=== PATIENT | female | born 1975 | race Caucasian/White ===

== ENCOUNTER 2016-11-25 15:27 | Emergency (ER) | payer MEDICAID ==
[~2016-11-25] VITALS: Wt 70.0 kg
[~2016-11-25 15:27] MED LIST: ACET1TAB40 PO; ALBU8.5H3 INH; BECL8.7A INH; CEPH-443 PO; IBUP-1542 PO; IBUP400T22 PO; PRED20TA PO; TYL500 PO; ZOF8 PO
[2016-11-25] MEDS ORDERED: ACETAMINOPHEN 500 MG TAB PO STA (18:06)
[2016-11-25] MEDS ORDERED: LEVALBUTEROL (NEB) 1.25 MG/0.5 ML AMP INH STA (18:06)
[2016-11-25] MEDS ORDERED: predniSONE 20 MG TAB PO STA (18:06)
--- NOTE | 2016-11-25 18:42 | ERD ---
ER Documentation Chief Complaint Date/Time DATE: 11/25/16 TIME: 18:42 Chief Complaint COUGH AND CONGESTION FOR THE PAST 3 DAYS. FEVER. MILD DISTRESS. HPI This a 41-year-old female who presents the emergency department today complaining of cough, runny nose, body aches and fevers for the past 3 days. Patient denies any nausea or vomiting. States she last took Motrin at 10 AM. States he has a history of asthma. ROS All systems reviewed and are negative except as per history of present illness. Medications Home Meds Active Scripts Prednisone* (Prednisone*) 20 Mg Tab, 40 MG PO DAILY for 4 Days, TAB Prov:CHAKA SHIN PA-C 01/04/16 Albuterol Sulfate* (Proair HFA*) 8.5 Gm Hfa.aer.ad, 2 PUFF INH Q4, #1 INHALER Prov:CHAKA SHIN PA-C 01/04/16 Beclomethasone Dip* (Qvar 40*) 7.3 Gm Inha, 1 PUFF INH BID, #1 INHALER Prov:CHAKA SHIN PA-C 01/04/16 Ondansetron Hcl* (Zofran* ODT) 8 mg -ODT Tab.disper, 8 MG PO Q6 Y for NAUSEA AND /OR VOMITING, #8 TAB Prov:CORY WYNN MD 06/27/15 Acetaminophen-Codeine* (Acetaminophen-Cod #3*) 300-30 Mg Tab, 1 TAB PO Q4H Y for PAIN, #14 TAB Prov:CORY WYNN MD 06/27/15 Ibuprofen* (Motrin*) 600 Mg Tab, 600 MG PO Q6, #20 TAB Prov:CORY WYNN MD 06/27/15 Cephalexin* (Keflex*) 500 Mg Capsule, 500 MG PO QID for 5 Days, CAP Prov:CORY WYNN MD 06/27/15 Reported Medications Acetaminophen* (Tylenol*) 500 Mg Tab, 500 MG PO DAILY Y for PAIN, TAB 07/17/14 Ibuprofen* (Ibuprofen*) 400 Mg Tablet, 400 MG PO DAILY Y for PAIN, TAB 07/17/14 Allergies Allergies: Coded Allergies: No Known Allergies (Verified Allergy, Mild, 07/17/14) PMhx/Soc History of Surgery: No Anesthesia Reaction: No Hx Neurological Disorder: No Hx Respiratory Disorders: Yes (ASTHMA) Hx Cardiac Disorders: No Hx Psychiatric Problems: No Hx Miscellaneous Medical Probl: No Hx Alcohol Use: No Hx Substance Use: No Hx Tobacco Use: No Physical Exam Vitals Vital Signs Date Time Temp Pulse Resp B/P Pulse Ox O2 Delivery O2 Flow Rate FiO2 11/25/16 18:31 87 20 96 21 11/25/16 16:57 141 26 99 Room Air 11/25/16 15:36 100.6 115 21 140/79 97 Physical Exam Const: Mild distress Head: Atraumatic Eyes: Normal Conjunctiva ENT: Ears TMs normal. Nose no drainage. Throat no erythema no exudate Neck: Full range of motion..~ No meningismus. Resp: Diffuse wheezing bilaterally in all lung webber. Cardio: Regular rate and rhythm, no murmurs Abd: Soft, non tender, non distended. Normal bowel sounds Skin: No petechiae or rashes Back: No midline or flank tenderness Ext: No cyanosis, or edema Neur: Awake and alert Psych: Normal Mood and Affect Results 24 hrs Laboratory Tests Test 11/25/16 19:54 Bedside Urine Blood Trace-intact Bedside Urine Glucose (UA) Negative Bedside Urine Ketones (LAB) 1+ Bedside Urine Leukocyte Esterase (L Negative Bedside Urine Nitrite (LAB) Negative Bedside Urine Protein (LAB) Negative Bedside Urine pH (LAB) 6.5 Current Medications Medications (Trade) Dose Ordered Sig/Ganesh Route PRN Reason Start Time Stop Time Status Last Admin Dose Admin Levalbuterol (Xopenex Neb) 2.5 mg ONCE STAT INH 11/25/16 18:06 11/25/16 18:08 DC 11/25/16 18:30 Prednisone (Prednisone) 60 mg ONCE STAT PO 11/25/16 18:06 11/25/16 18:08 DC 11/25/16 18:46 Acetaminophen (Tylenol Tab) 500 mg ONCE STAT PO 11/25/16 18:06 11/25/16 18:08 DC 11/25/16 18:45 DIAGNOSTIC IMAGING REPORT Patient: FREIDA PERRIN : 1975 Age: 41 Sex: F MR #: [id number] DOS: 11/25/16 180 Ordering MD: CLIFF RAMACHANDRAN PA-C Location: [facility] Room/Bed: PROCEDURE: XR Chest. CLINICAL INDICATION: Asthma exacerbation. TECHNIQUE: Single frontal chest x-ray. COMPARISON: Chest radiograph 01/04/2016. FINDINGS: The cardiomediastinal silhouette is unremarkable. No pneumothorax, pleural effusion or consolidation is seen. No acute osseous abnormality is noted. IMPRESSION: 1. No acute cardiopulmonary abnormality. RPTAT: HH .Hunter Kaplan MD, MD Date Time Electronically viewed and signed by .Hunter Kaplan MD, MD on 11/25/2016 19: 19 .N/ CC: CLIFF RAMACHANDRAN PA-C Procedures/MDM This a 41-year-old female who presents to the emergency department today with influenza-like symptoms. Patient was febrile at 100.6 and tachycardic. Her respirations are 21 and oxygen saturation 97%. Patient had significant amount of wheezing on physical exam. She does have a history of asthma and was therefore given a 1 hour continuous breathing treatment and I also obtained a chest x-ray.. Patient was also complaining of some low back pain and therefore did obtain a UA. Chest x-ray shows no acute cardiopulmonary abnormality. Suspicion for pneumonia , PE, abscess, pleural effusion. UA is negative for infection. Patient has had no trauma I do not feel that she requires imaging at this time. She was given Tylenol here in the emergency department in addition to her breathing treatment. Patient will be given a prescription for Tamiflu, Robitussin, short course of prednisone, Tylenol, Motrin and a refill on her pro- air inhaler. At this time the patient is stable for discharge and outpatient management. Patient should follow up with their PCP in the next 1-2 days. They may return to the emergency department sooner for any persistent or worsening of symptoms. Patient understood and agreed with the plan. CLIFF RAMACHANDRAN PA-C Nov 25, 2016 18:42
--- NOTE | 2016-11-25 19:19 | RADRPT ---
PROCEDURE: XR Chest. CLINICAL INDICATION: Asthma exacerbation. TECHNIQUE: Single frontal chest x-ray. COMPARISON: Chest radiograph 01/04/2016. FINDINGS: The cardiomediastinal silhouette is unremarkable. No pneumothorax, pleural effusion or consolidation is seen. No acute osseous abnormality is noted. IMPRESSION: 1. No acute cardiopulmonary abnormality. RPTAT: HH .Hunter Kaplan MD, Date Time Electronically viewed and signed by .Hunter Kaplan MD, on 11/25/2016 19:19 .N/
[2016-11-25 19:50] LABS: URINE BLOOD (Dip) POC Trace-intact (NEGATIVE)
[2016-11-25] MEDS ORDERED: IBUP-1542 PO (19:58)
[2016-11-25] MEDS ORDERED: ACET500C5 PO (19:58)
[2016-11-25] MEDS ORDERED: ALBU8.5H3 INH (19:58)
[2016-11-25] MEDS ORDERED: OSLT75C PO (19:58)
[2016-11-25] MEDS ORDERED: PRED20TA PO (19:58)
[2016-11-25] MEDS ORDERED: UDROBDM PO (19:59)
[2016-11-25 20:15] VITALS: BP 137/87; PULSE 133; RESP 20; TEMP 98.4
== END 2016-11-25 20:17 | disposition home or self-care (01) ==
LOC: FTE 15:27
DX: R05 Cough (principal); R09.89 Other specified symptoms and signs involving the circulatory and respiratory systems; R50.9 Fever, unspecified; R52 Pain, unspecified; J45.901 Unspecified asthma with (acute) exacerbation
CPT/HCPCS: 71010; 81003; 94644; J7512; Z7502; Z7610

== ENCOUNTER 2017-07-13 19:16 | Emergency (ER) | payer MEDICAID ==
[~2017-07-13] VITALS: Ht 160 cm; Wt 68.5 kg
[~2017-07-13 19:16] MED LIST changes: +ACET500C5 PO; +OSLT75C PO; +UDROBDM PO
[2017-07-13 20:07] VITALS: Ht 160 cm; Wt 68.5 kg
[2017-07-13] MEDS ORDERED: ONDANSETRON 4 MG INJ IV STA (22:32)
[2017-07-13] MEDS ORDERED: SOD CHLORIDE 0.9% 1,000 ML IV STA (22:32)
[2017-07-13] MEDS ORDERED: KETOROLAC 30 MG INJ IV STA (22:32)
[2017-07-13 23:07] LABS: BASOPHILS % 0.5 % (0.0-2.0); EOSINOPHILS # 0.7 10^3/ul (0.0-0.5); EOSINOPHILS % 8.2 % (0.0-7.0); HEMATOCRIT 37.8 % (37.0-47.0); HEMOGLOBIN 11.9 g/dl (12.0-16.0); LYMPHOCYTES # 2.4 10^3/ul (0.8-2.9); LYMPHOCYTES % 27.8 % (15.0-51.0); MEAN CORPUSCULAR HGB CONC 31.5 g/dl (32.0-37.0); MEAN CORPUSCULAR VOLUME 92.2 fl (82.0-101.0); MEAN PLATELET VOLUME 8.8 fl (7.4-10.4); MONOCYTE # 0.8 10^3/ul (0.3-0.9); MONOCYTES % 9.3 % (0.0-11.0); NEUTROPHIL # 4.8 10^3/ul (1.6-7.5); PLATELET COUNT 465 10^3/UL (140-415); RED CELL DISTRIBUTION WIDTH 14.5 % (11.5-14.5); WHITE BLOOD COUNT 8.8 10^3/ul (4.8-10.8)
[2017-07-13 23:25] LABS: ALBUMIN 4.1 g/dl (3.3-4.9); ALBUMIN/GLOBULIN RATIO 1.1; BILIRUBIN,INDIRECT 0.1 mg/dl (0-1.1); BILIRUBIN,TOTAL 0.1 mg/dl (0.2-1.3); CALCIUM 9.8 mg/dl (8.4-10.2); CREATININE 0.75 mg/dl (0.44-1.00); POTASSIUM 5.2 mmol/L (3.5-5.1); TOTAL PROTEIN 7.8 g/dl (6.1-8.1)
[2017-07-13 23:30] LABS: ADD UMIC YES; UR ASCORBIC ACID 40 mg/dL (NEGATIVE); UR BACTERIA FEW /HPF (NONE SEEN); UR BILIRUBIN (Dip) NEGATIVE (NEGATIVE); UR BLOOD (Dip) 3+ mg/dL (NEGATIVE); UR CLARITY CLEAR (CLEAR); UR COLOR YELLOW (YELLOW); UR GLUCOSE (Dip) NEGATIVE (NEGATIVE); UR KETONES (Dip) NEGATIVE (NEGATIVE); UR LEUKOCYTE ESTERASE (Dip) NEGATIVE Leu/ul (NEGATIVE); UR MUCUS FEW /HPF (NONE SEEN); UR NITRITE (Dip) NEGATIVE (NEGATIVE); UR RBC 2 /HPF (0-5); UR SPECIFIC GRAVITY (Dip) 1.027 (1.003-1.030); UR SQUAMOUS EPITHELIAL CELL FEW /HPF (FEW); UR TOTAL PROTEIN (Dip) NEGATIVE (NEGATIVE); UR UROBILINOGEN (Dip) NEGATIVE (NEGATIVE)
--- NOTE | 2017-07-13 23:34 | RADRPT ---
PROCEDURE: Right upper quadrant abdominal ultrasound. CLINICAL INDICATION: Abdominal pain TECHNIQUE: Wolfe scale and color doppler ultrasound images of the right upper quadrant of the abdom en. COMPARISON: None FINDINGS: Pancreas: Visualized portions appear of normal echogenicity without focal lesions. Liver: Morphology:Normal in size. Contour:Normal, no evidence of nodularity. Echogenicity: Normal. Focal lesions:None. Main portal vein: Patent with hepatopetal flow. Biliary System: Gallbladder wall: Normal thickness. Gallstones: None. Intrahepatic bile ducts: Normal caliber. Common bile duct diameter (mm): 3.6 Kidneys: Right length (cm) : 8.7, likely under measured due to under visualization. Right cortical thickness: Normal. Echogenicity: Normal. Hydronephrosis: None. Renal calculi: None. Focal lesions: None. Free fluid/ascites: None. Abdominal aorta: Normal caliber of the visualized segments. Other findings: None. IMPRESSION: Normal gallbladder without gallstones. RPTAT: AADD .Tony Canales MD, MD Date Time Electronically viewed and signed by .Tony Canales MD, on 07/13/2017 23:33 .B/
[2017-07-13] MEDS ORDERED: FIORICET PO (23:48)
[2017-07-13] MEDS ORDERED: ONDA-43 PO (23:48)
[2017-07-13] MEDS ORDERED: FAMO-96 PO (23:48)
--- NOTE | 2017-07-14 00:04 | ERD ---
ER Documentation Chief Complaint Chief Complaint EPIGASTRIC PAIN W/ HEADACHE AND FEVER X 2 DAYS. VOMITING HPI This is a 42-year-old female presents to the ER with multiple complaints. Patient states she has had a headache which is located in the front of her head and radiates to the back pain is throbbing and constant. Patient has had headaches like this in the past and had an episode that was similar to his 15 days ago. Patient admits to nausea and nonbilious nonbloody vomiting. She denies any head trauma. This is not the worst headache of the patient's life. Patient states that on Wednesday she had a fever and also had a fever on Wednesday. She denies any chills. She denies cough or cold symptoms. Patient is also complaining of epigastric pain that radiates to the right upper quadrant. pain Is throbbing in quality and intermittent. Patient has not tried anything for her symptoms. ROS 12 point review of systems was done, all negative except per HPI. Medications Home Meds Active Scripts Ondansetron Hcl* (Zofran*) 4 Mg Tab, 4 MG PO Q4H Y for NAUSEA AND OR VOMITING, # 10 TAB Prov:SILVANA WILL 07/13/17 Famotidine* (Pepcid*) 20 Mg Tablet, 20 MG PO BID for 4 Days, TAB Prov:SILVANA WILL 07/13/17 Acetamin/Butalbital/Caffeine* (Fioricet*) [id number] Tab, 1 TAB PO Q6H Y for PAIN, #30 TAB Prov:SILVANA WILL 07/13/17 Guaifenesin-Dextromethorphan* (Robitussin* DM) 100MG/10MG/5ML Syrup, 10 ML PO Q4H Y for COUGH for 5 Days, ML Prov:CLIFF RAMACHANDRAN PA-C 11/25/16 Prednisone* (Prednisone*) 20 Mg Tab, 40 MG PO DAILY for 4 Days, TAB Prov:CLIFF RAMACHANDRANC 11/25/16 Acetaminophen* (Tylophen*) 500 Mg Capsule, 1 CAP PO Q6H Y for PAIN AND OR ELEVATED TEMP, #30 CAP Prov:CLIFF RAMACHANDRAN PA-C 11/25/16 Ibuprofen* (Motrin*) 600 Mg Tab, 600 MG PO Q6, #30 TAB Prov:CLIFF RAMACHANDRAN PA-C 11/25/16 Oseltamivir Phosphate* (Tamiflu*) 75 Mg Capsule, 75 MG PO BID for 5 Days, CAP Prov:CLIFF RAMACHANDRANC 11/25/16 Albuterol Sulfate* (Proair HFA*) 8.5 Gm Hfa.aer.ad, 2 PUFF INH Q4, #1 INHALER Prov:CLIFF RAMACHANDRAN PA-C 11/25/16 Prednisone* (Prednisone*) 20 Mg Tab, 40 MG PO DAILY for 4 Days, TAB Prov:CHAKA SHIN PA-C 01/04/16 Albuterol Sulfate* (Proair HFA*) 8.5 Gm Hfa.aer.ad, 2 PUFF INH Q4, #1 INHALER Prov:CHAKA SHIN PA-C 01/04/16 Beclomethasone Dip* (Qvar 40*) 7.3 Gm Inha, 1 PUFF INH BID, #1 INHALER Prov:CHAKA SHIN PA-C 01/04/16 Ondansetron Hcl* (Zofran* ODT) 8 mg -ODT Tab.disper, 8 MG PO Q6 Y for NAUSEA AND /OR VOMITING, #8 TAB Prov:CORY WYNN MD 06/27/15 Acetaminophen-Codeine* (Acetaminophen-Cod #3*) 300-30 Mg Tab, 1 TAB PO Q4H Y for PAIN, #14 TAB Prov:CORY WYNN MD 06/27/15 Ibuprofen* (Motrin*) 600 Mg Tab, 600 MG PO Q6, #20 TAB Prov:CORY WYNN MD 06/27/15 Cephalexin* (Keflex*) 500 Mg Capsule, 500 MG PO QID for 5 Days, CAP Prov:CORY WYNN MD 06/27/15 Reported Medications Acetaminophen* (Tylenol*) 500 Mg Tab, 500 MG PO DAILY Y for PAIN, TAB 07/17/14 Ibuprofen* (Ibuprofen*) 400 Mg Tablet, 400 MG PO DAILY Y for PAIN, TAB 07/17/14 Allergies Allergies: Coded Allergies: No Known Allergies (Verified Allergy, Mild, 10/28/14) PMhx/Soc Medical and Surgical Hx: pt denies Surgical Hx History of Surgery: No Anesthesia Reaction: No Hx Neurological Disorder: No Hx Respiratory Disorders: Yes (ASTHMA) Hx Cardiac Disorders: No Hx Psychiatric Problems: No Hx Miscellaneous Medical Probl: No Hx Alcohol Use: No Hx Substance Use: No Hx Tobacco Use: No Smoking Status: Never smoker Physical Exam Vitals Vital Signs Date Time Temp Pulse Resp B/P Pulse Ox O2 Delivery O2 Flow Rate FiO2 07/13/17 20:07 98.5 76 18 145/92 98 Physical Exam GENERAL: The patient is well developed and appropriate for usual state of health , in no apparent distress. HEENT: Atraumatic. Conjunctivae are pink. Pupils equal, round, and reactive to light. Extraocular muscles are grossly intact. Bilateral tympanic membranes are clear with no evidence of erythema, bulging or perforation. No sinus tenderness. NECK: C-spine is soft and supple. There is no cervical lymphadenopathy. CHEST: Clear to auscultation bilaterally. There are no rales, wheezes or rhonchi. HEART: Regular rate and rhythm. No murmurs, clicks, rubs or gallops. ABDOMEN: Tender to palpation in the right upper quadrant, no rebound tenderness no guarding. Negative McBurney's point. No masses. NEURO: Alert and oriented. Cranial nerves II through XII are intact. Motor strength in all 4 extremities with 5/5 strength. Sensation grossly intact. Normal speech and gait. Negative Rhomberg. +2 DTRs. SKIN: There is no apparent rash or petechia. The skin is warm and dry. Result Diagram: 07/13/17224307/13/172243 Results 24 hrs Laboratory Tests Test 07/13/17 21:14 07/13/17 22:44 Urine Color YELLOW Urine Clarity CLEAR Urine pH 5.0 Urine Specific [place] 1.027 Urine Ketones NEGATIVEmg/dL Urine Nitrite NEGATIVEmg/dL Urine Bilirubin NEGATIVEmg/dL Urine Urobilinogen NEGATIVEmg/dL Urine Leukocyte Esterase NEGATIVELeu/ul Urine Microscopic RBC 2/HPF Urine Microscopic WBC 1/HPF Urine Squamous Epithelial Cells FEW/HPF Urine Bacteria FEW/HPF Urine Mucus FEW/HPF Urine Hemoglobin 3+mg/dL Urine Glucose NEGATIVEmg/dL Urine Total Protein NEGATIVEmg/dl White Blood Count 8.810^3/ul Red Blood Count 4.1010^6/ul Hemoglobin 11.9g/dl Hematocrit 37.8% Mean Corpuscular Volume 92.2fl Mean Corpuscular Hemoglobin 29.0pg Mean Corpuscular Hemoglobin Concent 31.5g/dl Red Cell Distribution Width 14.5% Platelet Count 05540^3/UL Mean Platelet Volume 8.8fl Neutrophils % 54.0% Lymphocytes % 27.8% Monocytes % 9.3% Eosinophils % 8.2% Basophils % 0.5% Nucleated Red Blood Cells % 0.0/100WBC Neutrophils # 4.810^3/ul Lymphocytes # 2.410^3/ul Monocytes # 0.810^3/ul Eosinophils # 0.710^3/ul Basophils # 0.010^3/ul Nucleated Red Blood Cells # 0.010^3/ul Sodium Level 142mmol/L Potassium Level 5.2mmol/L Chloride Level 109mmol/L Carbon Dioxide Level 27mmol/L Anion Gap 11 Blood Urea Nitrogen 14mg/dl Creatinine 0.75mg/dl Glucose Level 85mg/dl Calcium Level 9.8mg/dl Total Bilirubin 0.1mg/dl Direct Bilirubin 0.00mg/dl Indirect Bilirubin 0.1mg/dl Aspartate Amino Transf (AST/SGOT) 20IU/L Alanine Aminotransferase (ALT/SGPT) 24IU/L Alkaline Phosphatase 72IU/L Total Protein 7.8g/dl Albumin 4.1g/dl Globulin 3.70g/dl Albumin/Globulin Ratio 1.10 Lipase 63U/L Current Medications Medications (Trade) Dose Ordered Sig/Ganesh Route PRN Reason Start Time Stop Time Status Last Admin Dose Admin Sodium Chloride (NS) 1,000 ml @ 1,000 mls/hr Q1H STAT IV 07/13/17 22:32 07/13/17 23:31 DC 07/13/17 23:01 Ondansetron HCl (Zofran Inj) 4 mg ONCE STAT IV 07/13/17 22:32 07/13/17 22:34 DC 07/13/17 23:01 Ketorolac Tromethamine (Toradol) 30 mg ONCE STAT IV 07/13/17 22:32 07/13/17 22:34 DC 07/13/17 23:01 Procedures/MDM Patient has multiple complaints. In regards to patient's headache Differential Diagnosis includes but is not limited to; tension headache, migraine headache, cluster headache, sinus headache, nonspecific febrile headache, trigeminal neurologia, subdural hematoma, subarachnoid bleeding, meningitis, encephalitis. Patient is neurologically intact with no focal neurological deficits. Pain was resolved in the ER with Toradol. She is afebrile and well-appearing with a normal neurological physical examination. At this time I do not believe that CT imaging is indicated. Patient was given Fioricet for her headaches. In regards to patient's abdominal pain: Differential Diagnosis: GERD, gastritis, peptic ulcer disease, pancreatitis, cholecystitis, choledocholithiasis, biliary colic, cholangitis, Acgq-Suds-Hjwqij , ACS/WI, Pnuemonia. Patient likely has GERD. Suspicion for gallbladder disease is low. Patient's ultrasound was negative for gallstones and she does not have any elevation in her enzymes, or bilirubin. Lipase is normal. She will be sent home with famotidine for her pain and Zofran for her nausea and vomiting. Patient is to follow-up with her primary care doctor within 1-2 days or return to ER sooner if symptoms worsen. My medical decision making sure with the patient she understands and agrees with plan per Departure Diagnosis: Primary Impression: Multiple complaints Condition: Stable Patient Instructions: Headache, Unspecified Additional Instructions: Call your primary care doctor TOMORROW for an appointment during the next 1-2 days.See the doctor sooner or return here if your condition worsens before your appointment time. SILVANA WILL Jul 14, 2017 00:04
[2017-07-14 00:09] VITALS: BP 138/78; PULSE 65; RESP 18; TEMP 98.5
== END 2017-07-14 00:11 | disposition home or self-care (01) ==
LOC: FTE 19:16
DX: R10.13 Epigastric pain (principal); R51 Headache; R50.9 Fever, unspecified; R11.2 Nausea with vomiting, unspecified; J45.909 Unspecified asthma, uncomplicated
CPT/HCPCS: 36415; 76705; 80053; 81001; 83690; 85025; 96374; 96375; J1885; J2405; J7030; Z7502

== ENCOUNTER 2018-07-10 14:31 | Emergency (ER) | END 2018-07-10 16:20 | disposition home or self-care (01) ==

== ENCOUNTER 2018-07-17 10:59 | Emergency (ER) | END 2018-07-17 12:17 | disposition home or self-care (01) ==

== ENCOUNTER 2018-11-23 08:40 | Emergency (ER) | payer MEDICAID ==
[~2018-11-23] VITALS: Wt 71.2 kg
[~2018-11-23 08:40] MED LIST changes: +ALBU2.5V3 NEB; -ALBU8.5H3 INH; +ALBU8.5H8 INH; +BEN50 PO; +BENZ-6 PO; +FAMO-96 PO; +FIORICET PO; +GUAI5SYR2 PO; +IBUP-1541 PO; -IBUP400T22 PO; +ONDA4TAB13 PO; +OSEL75CA23 PO; -OSLT75C PO; -UDROBDM PO
[2018-11-23 08:43] VITALS: BP 134/71; PULSE 75; RESP 17
[2018-11-23] MEDS ORDERED: KETOROLAC 30 MG INJ IM STA (09:34)
[2018-11-23] MEDS ORDERED: HYDROCODONE/APAP (5/325) TAB PO ONE (11:00)
[2018-11-23] MEDS ORDERED: IBUP-1542 PO (11:54)
[2018-11-23] MEDS ORDERED: HYDR-4011 PO (11:55)
--- NOTE | 2018-11-23 11:56 | ERD ---
ER Documentation Chief Complaint Chief Complaint HEADACHE, STATES BLOOD PRESSURE HIGH, ON MEDS ROS All systems reviewed and are negative except as per history of present illness. Medications Home Meds Active Scripts Hydrocodone/Acetaminophen ([place] 5-325 Tablet) 1 Each Tablet, 1 TAB PO Q6H PRN for PAIN, #10 TAB Prov:ELIZABETH CALI DO 11/23/18 Ibuprofen* (Motrin*) 600 Mg Tab, 600 MG PO Q6H PRN for PAIN AND OR ELEVATED TEMP, #30 TAB Prov:ELIZABETH CALI DO 11/23/18 Albuterol Sulfate* (Proair HFA*) 8.5 Gm Hfa.aer.ad, 2 PUFF INH Q4H PRN for WHEEZING AND SOB, #1 INHALER Prov:JUAN OWUSU PA-C 10/02/18 Benzonatate* (Tessalon Perle*) 100 Mg Capsule, 100 MG PO Q8H PRN for COUGH, #30 CAP Prov:JUAN OWUSU PA-C 10/02/18 Albuterol Sulfate* (Albuterol Sulfate* Neb) 0.083%-3 Ml Neb, 5 MG NEB Q4 PRN for SHORTNESS OF BREATH, #30 EA Prov:JUAN OWUSU PA-C 10/02/18 Diphenhydramine Hcl* (Benadryl*) 50 Mg Cap, 50 MG PO Q6H PRN for ITCHING/RASH, #30 CAP Prov:CHANTELLE TARANOG NP 07/17/18 Acetamin/Butalbital/Caffeine* (Fioricet*) [id number] Tab, 1 TAB PO Q6H PRN for PAIN, #28 TAB Prov:CL BRADLEY MD 07/10/18 Ondansetron Hcl* (Zofran*) 4 Mg Tab, 4 MG PO Q4H PRN for NAUSEA AND OR VOMITING, #10 TAB Prov:SILVANA WILL 07/13/17 Famotidine* (Pepcid*) 20 Mg Tablet, 20 MG PO BID for 4 Days, TAB Prov:SILVANA WILL 07/13/17 Acetamin/Butalbital/Caffeine* (Fioricet*) [id number] Tab, 1 TAB PO Q6H PRN for PAIN, #30 TAB Prov:SILVANA WILL 07/13/17 Guaifenesin-Dextromethorphan* (Robitussin* DM) 100MG/10MG/5ML Syrup, 10 ML PO Q4H PRN for COUGH for 5 Days, ML Prov:CLIFF RAMACHANDRAN-C 11/25/16 Prednisone* (Prednisone*) 20 Mg Tab, 40 MG PO DAILY for 4 Days, TAB Prov:CLIFF RAMACHANDRAN-C 11/25/16 Acetaminophen* (Tylophen*) 500 Mg Capsule, 1 CAP PO Q6H PRN for PAIN AND OR ELEVATED TEMP, #30 CAP Prov:CLIFF RAMACHANDRANC 11/25/16 Ibuprofen* (Motrin*) 600 Mg Tab, 600 MG PO Q6, #30 TAB Prov:CLIFF RAMACHANDRANC 11/25/16 Oseltamivir Phosphate* (Tamiflu*) 75 Mg Capsule, 75 MG PO BID for 5 Days, CAP Prov:CLIFF RAMACHANDRAN-C 11/25/16 Albuterol Sulfate* (Proair HFA*) 8.5 Gm Hfa.aer.ad, 2 PUFF INH Q4, #1 INHALER Prov:CLIFF RAMACHANDRAN PA-C 11/25/16 Prednisone* (Prednisone*) 20 Mg Tab, 40 MG PO DAILY for 4 Days, TAB Prov:CHAKA SHIN PA-C 01/04/16 Albuterol Sulfate* (Proair HFA*) 8.5 Gm Hfa.aer.ad, 2 PUFF INH Q4, #1 INHALER Prov:CHAKA SHIN PA-C 01/04/16 Beclomethasone Dip* (Qvar 40*) 7.3 Gm Inha, 1 PUFF INH BID, #1 INHALER Prov:CHAKA SHIN PA-C 01/04/16 Ondansetron Hcl* (Zofran* ODT) 8 mg -ODT Tab.disper, 8 MG PO Q6 PRN for NAUSEA AND/OR VOMITING, #8 TAB Prov:CORY WYNN MD 06/27/15 Acetaminophen-Codeine* (Acetaminophen-Cod #3*) 300-30 Mg Tab, 1 TAB PO Q4H PRN for PAIN, #14 TAB Prov:CORY WYNN MD 06/27/15 Ibuprofen* (Motrin*) 600 Mg Tab, 600 MG PO Q6, #20 TAB Prov:CORY WYNN MD 06/27/15 Cephalexin* (Keflex*) 500 Mg Capsule, 500 MG PO QID for 5 Days, CAP Prov:CORY WYNN MD 06/27/15 Reported Medications Acetaminophen* (Tylenol*) 500 Mg Tab, 500 MG PO DAILY PRN for PAIN, TAB 07/17/14 Ibuprofen* (Ibuprofen*) 400 Mg Tablet, 400 MG PO DAILY PRN for PAIN, TAB 07/17/14 Allergies Allergies: Coded Allergies: No Known Allergies (Verified Allergy, Mild, 11/23/18) PMhx/Soc History of Surgery: No Anesthesia Reaction: No Hx Neurological Disorder: No Hx Respiratory Disorders: Yes (ASTHMA) Hx Cardiac Disorders: Yes (HTN) Hx Psychiatric Problems: No Hx Miscellaneous Medical Probl: No Hx Alcohol Use: No Hx Substance Use: No Hx Tobacco Use: No Smoking Status: Never smoker Physical Exam Vitals Vital Signs Date Temp Pulse Resp B/P (MAP) Pulse Ox O2 O2 Flow FiO2 Time Delivery Rate 11/23/18 97.0 75 17 134/71 99 08:43 (92) Physical Exam Const: No acute distress Head: Atraumatic Eyes: Normal Conjunctiva ENT: Normal External Ears, Nose and Mouth. Neck: Full range of motion. No meningismus. Resp: Clear to auscultation bilaterally Cardio: Regular rate and rhythm, no murmurs Abd: Soft, non tender, non distended. Normal bowel sounds Skin: No petechiae or rashes Back: No midline or flank tenderness Ext: No cyanosis, or edema Neur: Awake and alert Psych: Normal Mood and Affect Results 24 hrs Laboratory Tests Test 11/23/18 09:51 POC Beta HCG, Qualitative NEGATIVE Current Medications Medications Dose Sig/Ganesh Start Time Status Last (Trade) Ordered Route PRN Stop Time Admin Dose Reason Admin Ketorolac 30 mg ONCE STAT 11/23/18 DC 11/23/18 Tromethamine IM 09:34 11/23/18 09:46 (Toradol) 09:35 1 tab ONCE ONCE 11/23/18 DC 11/23/18 Acetaminophen PO 11:00 11/23/18 10:59 / 11:01 Hydrocodone Bitart ([place] ()) Departure Diagnosis: Primary Impression: Headache Headache type: unspecified Headache chronicity pattern: unspecified pattern Intractability: not intractable Qualified Codes: R51 - Headache Condition: Fair Patient Instructions: Self-Care for Headaches Referrals: [facility] YOU HAVE RECEIVED A MEDICAL SCREENING EXAM AND THE RESULTS INDICATE THAT YOU DO NOT HAVE A CONDITION THAT REQUIRES URGENT TREATMENT IN THE EMERGENCY DEPARTMENT. FURTHER EVALUATION AND TREATMENT OF YOUR CONDITION CAN WAIT UNTIL YOU ARE SEEN IN YOUR DOCTORS OFFICE WITHIN THE NEXT 1-2 DAYS. IT IS YOUR RESPONSIBILITY TO MAKE AN APPOINTMENT FOR FOLOW-UP CARE. IF YOU HAVE A PRIMARY DOCTOR --you should call your primary doctor and schedule an appointment IF YOU DO NOT HAVE A PRIMARY DOCTOR YOU CAN CALL OUR PHYSICIAN REFERRAL HOTLINE AT IF YOU CAN NOT AFFORD TO SEE A PHYSICIAN YOU CAN CHOSE FROM THE FOLLOWING [facility] [address] [facility] [address] [address] [facility] [address] [facility] [address] [address] [facility] [address] [facility] [facility] [address]. [facility] [address] [facility]. [facility]. [address] Additional Instructions: Llame al doctor MAANA y rishabh angel RAFAEL PARA DENTRO DE 1-2 GARCIA.Dgale a la secretaria que nosotros le instruimos hacer esta rafael.Avise o llame si linton condic in se empeora antes de la rafael. Regresa aqui si peor o no mejor. ELIZABETH CALI DO Nov 23, 2018 11:56
== END 2018-11-23 12:07 | disposition home or self-care (01) ==
LOC: FTE 08:40
DX: R51 Headache (principal); J45.901 Unspecified asthma with (acute) exacerbation; I10 Essential (primary) hypertension
CPT/HCPCS: 81025; 96372; J1885; Z7502; Z7610